=== PATIENT | female | born 1955 | race Hispanic/Latino ===

== ENCOUNTER → 2019-01-13 | Outpatient (CLI) | payer BC ==
--- NOTE | 2019-01-13 12:05 | Diagnostic Imaging Report ---
Exam: Cervical spine radiographs-5 views Clinical History: Cervical spondylolysis. Comparison: None. Findings: No evidence of acute fracture. C1-C2 alignment is maintained. There is straightening of the normal cervical lordosis. The prevertebral soft tissues are unremarkable. There are mild degenerative disc changes with mild bony neural foraminal stenosis at C4-C5. Moderate facet degenerative changes at C7-T1. Impression: No acute radiographic abnormality. Mild degenerative disc changes with mild bony neural foraminal stenosis at C4-C5. Moderate lower cervical facet degenerative changes. Signed by: Dr. Shree Louis MD on 01/13/2019 12:02 PM
--- NOTE | 2019-01-13 12:50 | Diagnostic Imaging Report ---
EXAM: US THYROID DATE: 01/13/2019 10:08 AM INDICATION: Hyperparathyroidism COMPARISON: None FINDINGS: Grayscale and color flow Doppler ultrasound of the thyroid was performed. Right lobe: 4.8 x 1.7 x 1.9 cm. Mildly heterogeneous echotexture. Relatively hypovascular color flow. Nodules: Mid thyroid: 0.5 x 0.2 x 0.5 cm, hypoechoic, cystic, wide, smooth margins, no calcifications. TR3a. Additional cystic areas measure 2 to 3 mm. Left lobe: 4.8 x 1.4 x 2.1 cm. Mildly heterogeneous echotexture. Relatively hypovascular color flow. Nodules: Lower pole: 0.8 x 0.2 x 0.3 cm, hypoechoic, cystic, wide, smooth margins, no calcifications. TR3a. Additional cystic areas measure 2 to 3 mm. Isthmus: 0.3 cm thickness. IMPRESSION: 1. No suspicious thyroid nodules. 2. No mass is seen inferior to the right or left lobes. 3. Heterogeneous thyroid with relatively hypovascular color flow. These findings may be seen in thyroiditis. ACR TI-RADS Lexicon: TR1, Benign: No FNA TR2, Not Suspicious: No FNA. TR3a (<1.5 cm): No follow-up. TR3b (1.5-2.5 cm), Mildly Suspicious: Follow at 1, 3, 5 years. TR3c (>2.5 cm), Mildly Suspicious: FNA. TR4a (<1.0 cm): No follow-up. TR4b (1.0-1.5 cm), Moderately Suspicious: Follow at 1, 2, 3, 5 years. TR4c (>1.5 cm), Moderately Suspicious: FNA. TR5a (<0.5 cm): No follow-up. TR5b (0.5-1.0 cm), Highly Suspicious: Follow at 1, 2, 3, 4, 5 years. TR5c (>1.0 cm), Highly Suspicious: FNA. Literature: ACR Thyroid Imaging, Reporting and Data System (TI-RADS): White Paper of the ACR TI-RADS Committee. J Am Tracie Radiol 2017. Signed by: Dr. Checo Reyez M.D. on 01/13/2019 12:47 PM
== END ==
LOC: US 09:51
PROVIDERS: ATTEND Nurse Practitioner Adult Health
DX: Z12.31 Encounter for screening mammogram for malignant neoplasm of breast (principal); M47.812 Spondylosis without myelopathy or radiculopathy, cervical region; E21.3 Hyperparathyroidism, unspecified
CPT/HCPCS: 72050; 76536; 77067